=== PATIENT | female | born 1945 | race Caucasian/White ===

== ENCOUNTER 2017-09-13 06:22 | Day surgery (SDC) | payer MEDICARE ==
[~2017-09-13] VITALS: Ht 170.2 cm; Wt 64.4 kg
[~2017-09-13 06:22] MED LIST: GLUC-206 PO; PARO-66 PO; PROBIOTIC; VITAMIN B12 PO
[2017-09-13] MEDS ORDERED: SODIUM CHLORIDE 0.9% 1000ML 1,000 ML IV ONE (06:31)
[2017-09-13 07:29] VITALS: BP 118/72
[2017-09-13] MEDS ORDERED: PROPOFOL 10 MG/ML 20ML VIAL IV ONE ×2 (08:20)
[2017-09-13 08:44] VITALS: BP 95/60
== END 2017-09-13 09:13 | disposition home or self-care (01) ==
LOC: ENDO 06:22 → DAH 06:22 → ENDO 09:13
PROVIDERS: ATTEND Internal Medicine Gastroenterology
DX: Z12.11 Encounter for screening for malignant neoplasm of colon (principal); M10.9 Gout, unspecified; G47.00 Insomnia, unspecified; Z88.8 Allergy status to other drugs, medicaments and biological substances; Z88.0 Allergy status to penicillin; Z90.710 Acquired absence of both cervix and uterus; Z98.890 Other specified postprocedural states; Z98.51 Tubal ligation status
CPT/HCPCS: A4606; G0105; J2704 ×2; J7030